=== PATIENT | female | born 2000 | race Caucasian/White ===

== ENCOUNTER 2021-05-08 09:28 | Observation (INO) | payer BC, SELFPAY ==
[~2021-05-08 09:28] MED LIST: HYDROcodone/Acetaminophen 5/325 mg Tablet PO PRN; Hyoscyamine Sulfate SL 0.125 mg Tablet SL PRN; Morphine 4 MG/ML VIAL SLOW IVP PRN; Ondansetron PF 4 MG/2 ML Vial IVP PRN; Phenazopyridine HCl 97.5 MG TABLET PO PRN; Zolpidem Tartrate 5 MG TAB PO PRN; diphenhydrAMINE 50 MG/ML VIAL IVP PRN
[2021-05-08] MEDS ORDERED: Midazolam HCl 2 mg/2 ml Vial ONE (11:33)
[2021-05-08] MEDS ORDERED: Levofloxacin 500 mg/D5W 100 ml Premix Bag ONE (12:05)
[2021-05-08] MEDS ORDERED: Iothalamate Meglumine 60% 50 ML VIAL FS ONE (12:57)
[2021-05-08] MEDS ORDERED: Fentanyl 100 MCG/2 ML VIAL ONE ×2 (13:15→14:40)
[2021-05-08] MEDS ORDERED: PROPOFOL 200 MG/20 ML VIAL ONE (13:26)
[2021-05-08] MEDS ORDERED: Dexamethasone 20 MG/5 ML VIAL ONE (13:26)
[2021-05-08] MEDS ORDERED: Ondansetron PF 4 MG/2 ML Vial ONE ×2 (13:26→15:09)
[2021-05-08] MEDS ORDERED: cefTRIAXone\\ROCEPHIN 1 GM in Sodium Chloride 0.9% 100 ML IVPB SCH (16:00)
[2021-05-08] MEDS: D5 1/2 NS w/20 mEq KCL 1,000 ML IV SCH ×2 (16:01→16:55)
[2021-05-08 16:21] VITALS: BMI 23.2
[2021-05-08] MEDS: Ketorolac Tromethamine 30 MG/ML VIAL IVP SCH ×2 (16:47→21:10)
[2021-05-08] MEDS ORDERED: FLU VACC QS2021-22(6MOS UP)/PF 60 MCG/0.5 ML SYRINGE IM ONE (17:00)
[2021-05-08] MEDS: Famotidine/PF 20 mg/2ml Vial SLOW IVP SCH (21:10)
[2021-05-08] MEDS ORDERED: Melatonin 3 MG TAB PO SCH (23:05)
[2021-05-09] MEDS: D5 1/2 NS w/20 mEq KCL 1,000 ML IV SCH ×2 (02:33→08:37)
[2021-05-09] MEDS: Ketorolac Tromethamine 30 MG/ML VIAL IVP SCH ×2 (05:27→11:08)
[2021-05-09 06:32] LABS: #Basophils 0.1 thou/uL (0.0-0.2); #Lymphocytes 0.7 thou/uL (1.20-3.40); #Monocytes 0.5 thou/uL (0.11-0.59); #Neutrophils 12.4 thou/uL (1.40-6.50); %Basophils 0.4 % (0.0-1.0); %Eosinophils 0.1 % (0.0-10.0); %Lymphocytes 5.2 % (21.0-51.0); %Monocytes 3.3 % (0.0-10.0); Hemoglobin 7.8 g/dL (12.0-16.0); Mean Corpuscular HGB CONC 32.8 g/dL (32.0-36.0); Mean Corpuscular Hemoglobin 31.2 pg (27.0-31.0); Mean Platelet Volume 8.3 fL (7.4-10.4); Platelet Count 116 thou/uL (130-400); Red Blood Cell (RBC) Count 2.51 mill/uL (4.20-5.40); White Blood Cell (WBC) Count 13.6 thou/uL (4.8-10.8)
[2021-05-09 06:49] LABS: Anion Gap 8 mmol/L (10-20); BUN (Urea Nitrogen) 12 mg/dL (7.0-18.7); Calc. Creatinine Clearance 110 mL/min (70-130); Calcium 7.9 mg/dL (7.8-10.44); Carbon Dioxide 22 mmol/L (22-29); Chloride 109 mmol/L (98-107); Glucose 118 mg/dL (70-105); Potassium 3.8 mmol/L (3.5-5.1); Sodium 135 mmol/L (136-145)
[2021-05-09] MEDS: Famotidine/PF 20 mg/2ml Vial SLOW IVP SCH (08:48)
[2021-05-09 08:50] VITALS: BP 93/58; TEMP 98.1
[2021-05-09] MEDS ORDERED: Tamsulosin HCl 0.4 MG CAP PO SCH (09:00)
[2021-05-09 15:54] LABS: SARS-CoV-2 PCR by NAA Not Detected (NotDetected)
== END 2021-05-09 11:32 | disposition home or self-care (01) ==
LOC: SDC 09:28 → T4-B 15:41
PROVIDERS: ADMIT Urology; ATTEND Urology
PROC: 0T768DZ Dilation of Right Ureter with Intraluminal Device, Via Natural or Artificial Opening Endoscopic (ICD-10-PCS; principal; 2021-05-08)
DX: A41.9 Sepsis, unspecified organism (principal); N13.6 Pyonephrosis; K21.9 Gastro-esophageal reflux disease without esophagitis; G47.00 Insomnia, unspecified; Z79.899 Other long term (current) drug therapy; Z88.0 Allergy status to penicillin; Z88.1 Allergy status to other antibiotic agents; Z20.822 Contact with and (suspected) exposure to COVID-19
CPT/HCPCS: 36415; 74420; 80048; 85025; 90471; 90686; 96365; 96375; 96376; G0008; G0378; J0696; J1100; J1885; J1956; J2250; J2405; J2704; J3010; J3480; J3490; Q9961-U8; S0028; U0003; U0005

== ENCOUNTER 2021-05-14 07:57 | Day surgery (SDC) | payer BC ==
[2021-05-13 12:46] VITALS: BMI 20.5
[2021-05-14] MEDS ORDERED: Midazolam HCl 2 mg/2 ml Vial ONE (09:10)
[2021-05-14] MEDS ORDERED: Levofloxacin 500 mg/D5W 100 ml Premix Bag ONE (09:10)
[2021-05-14] MEDS ORDERED: Ondansetron PF 4 MG/2 ML Vial ONE ×2 (09:10→09:57)
[2021-05-14] MEDS ORDERED: Fentanyl 100 MCG/2 ML VIAL ONE (09:37)
[2021-05-14] MEDS ORDERED: Iothalamate Meglumine 60% 50 ML VIAL FS ONE (09:45)
[2021-05-14] MEDS ORDERED: PHENYLEPHRINE-NS 100 MCG/ML 10 ML SYRINGE ONE (09:57)
[2021-05-14] MEDS ORDERED: Lidocaine 1% PF 5 ML VIAL ONE (09:57)
[2021-05-14] MEDS ORDERED: PROPOFOL 200 MG/20 ML VIAL ONE (09:57)
[2021-05-14] MEDS ORDERED: Ketorolac Tromethamine 30 MG/ML VIAL ONE (09:57)
[2021-05-14] MEDS ORDERED: Phenazopyridine HCl 100 MG TAB ONE (10:50)
[2021-05-14] MEDS ORDERED: Ondansetron ODT 4 MG TAB ONE (11:51)
[2021-05-14] MEDS ORDERED: HYDROcodone/Acetaminophen 5/325 mg Tablet ONE (11:51)
== END 2021-05-14 12:20 | disposition home or self-care (01) ==
LOC: SDC 07:57
PROVIDERS: ATTEND Urology
PROC: 0T768DZ Dilation of Right Ureter with Intraluminal Device, Via Natural or Artificial Opening Endoscopic (ICD-10-PCS; principal; 2021-05-14)
PROC: 0TC68ZZ Extirpation of Matter from Right Ureter, Via Natural or Artificial Opening Endoscopic (ICD-10-PCS; principal; 2021-05-14)
DX: N20.1 Calculus of ureter (principal); K21.9 Gastro-esophageal reflux disease without esophagitis; G47.00 Insomnia, unspecified; Z88.0 Allergy status to penicillin; Z88.1 Allergy status to other antibiotic agents; Z79.2 Long term (current) use of antibiotics; Z79.1 Long term (current) use of non-steroidal anti-inflammatories (NSAID); Z79.890 Hormone replacement therapy; Z79.899 Other long term (current) drug therapy
CPT/HCPCS: 74420; 82365; 88300; J1885; J1956; J2250; J2405; J2704; J3010; Q0162; Q9961-U8

== ENCOUNTER 2021-06-21 12:42 | Outpatient (CLI) | payer BC | END 2021-06-21 12:43 | disposition home or self-care (01) | LOC: BICULT 12:42 | PROVIDERS: ATTEND Urology | DX: N20.1 Calculus of ureter (principal) | CPT/HCPCS: 76770 ==